=== PATIENT | female | born 1960 | race Caucasian/White ===

== ENCOUNTER → 2024-06-27 10:55 | Outpatient (REF) | payer OTHER, SELFPAY ==
[2024-06-27 12:06] LABS: % Basophils 0.4 % (0-2); % Eosinophils 0.4 % (0-6); % Immature Granulocytes 0.3 % (0-0.5); % Lymphocytes 22.7 % (20.5-51.1); % Monocytes 8.5 % (1.7-9.3); % Neutrophils 67.7 % (42.2-75.2); Absolute Lymphocytes 1.6 10^3/uL (1.2-3.4); Absolute Monocytes 0.6 10^3/uL (0.1-0.6); Absolute Neutrophils 4.8 10^3/uL (1.4-6.5); Hematocrit 38.6 % (37.0-47.0); Hemoglobin 13.1 g/dL (12.0-16.0); Mean Corp Hgb Conc. 33.9 g/dL (33.0-37.0); Mean Corpuscular Hgb 32.1 pg (27.0-31.0); Mean Corpuscular Volume 94.6 fL (81.0-99.0); Mean Platelet Volume 8.4 fL (7.4-10.4); Nucleated Red Blood Cells % 0 %; Platelet Count 293 10^3/uL (130-400); Red Blood Cell Count 4.08 10^6/uL (4.20-5.40); Red Cell Dist. Width 12.4 % (11.5-14.5); White Blood Cell Count 7.2 10^3/uL (4.8-10.8)
[2024-06-27 13:24] LABS: ALT (SGPT) 17 U/L (0-35); AST (SGOT) 20 U/L (14-36); Albumin 4.8 g/dl (3.5-5.0); Alkaline Phosphatase 70 U/L (38-126); Blood Urea Nitrogen 18 mg/dl (7-17); Carbon Dioxide 24 mmol/L (22-30); Chloride 104 mmol/L (98-107); Glucose 117 mg/dl (70-99); Potassium 4.4 mmol/L (3.5-5.1); Sodium 139 mmol/L (135-145); Total Bilirubin 0.6 mg/dl (0.2-1.3); Total Protein 7.4 g/dl (6.3-8.2); eGFR > 60.00
[2024-06-27 13:26] LABS: C-Reactive Protein < 5.00 mg/L (0.0-10.00)
[2024-06-27 14:51] LABS: Erythrocyte Sed Rate 6 mm/hour (0-20)
[2024-06-28 13:34] LABS: Rheumatoid Agglutinin Less Than 10 IU (<10 IU)
[2024-06-29 23:05] LABS: CCP Antibody IgG/IgA 2 Units (0-19)
[2024-06-30 02:52] LABS: ANA, IgG Reflex to HEp-2 None Detected (None Detected)
[2024-06-30 03:13] LABS: Glu-6-Phosphate Dehydrogenase 11.6 U/g Hb (9.9-16.6)
== END ==
LOC: RAD 10:55
PROVIDERS: ATTENDING PHYSICIAN Student in an Organized Health Care Education/Training Program; FAMILY PHYSICIAN Family Medicine
DX: L40.9 Psoriasis, unspecified (principal); M06.9 Rheumatoid arthritis, unspecified
CPT/HCPCS: 36415; 72040; 72202; 73120; 80053; 82784; 82955; 83521; 84155; 84165; 85025; 85652; 86038; 86140; 86200; 86334; 86430

== ENCOUNTER → 2024-11-12 06:54 | Outpatient (REF) | payer OTHER, SELFPAY ==
[2024-11-12 07:20] VITALS: BP 134/75; BP_SYST 68
[2024-11-12 07:29] LABS: Hematocrit 38.8 % (37.0-47.0); Hemoglobin 12.9 g/dL (12.0-16.0); Mean Corp Hgb Conc. 33.2 g/dL (33.0-37.0); Mean Corpuscular Volume 94.9 fL (81.0-99.0); Nucleated Red Blood Cells % 0 %; Platelet Count 328 10^3/uL (130-400); Red Cell Dist. Width 12.3 % (11.5-14.5)
[2024-11-12 07:38] LABS: INR 0.97; PT 13.2 Sec (11.4-14.6)
[2024-11-12] MEDS: ATIVAN 0.5 MG PO (07:47)
[2024-11-12 08:59] VITALS: BP 133/85; BP 135/76; BP_SYST 69
== END ==
LOC: RADI 06:54
PROVIDERS: ATTENDING PHYSICIAN Internal Medicine Hematology & Oncology; FAMILY PHYSICIAN Family Medicine; REFERRING PHYSICIAN Physician Assistant
DX: D47.2 Monoclonal gammopathy (principal)
CPT/HCPCS: 36415; 38222; 77012; 85025; 85610; 88305; 88311; 88312; 88313

== ENCOUNTER → 2024-11-20 09:13 | Outpatient (REF) | payer OTHER, SELFPAY | LOC: PET 09:13 | PROVIDERS: ATTENDING PHYSICIAN Internal Medicine Hematology & Oncology | DX: D47.2 Monoclonal gammopathy (principal) | CPT/HCPCS: 78816; A9552 ==